=== PATIENT | male | born 1995 | race Caucasian/White ===

== ENCOUNTER 2025-02-11 05:48 | Emergency (ER) | payer OTHER, SELFPAY ==
--- NOTE | ~2025-02-11 | XR_ITS ---
CLINICAL HISTORY: constipation 1 view abdomen Comparison: None provided Findings: No pneumoperitoneum or pneumatosis. Formed fecal material within the ascending colon. No abnormal calcifications. No acute fractures. IMPRESSION: The bowel gas pattern is within normal limits. Small volume formed fecal material predominantly within the right colon. This document has been electronically signed by: Audrey Amato MD on 02/11/2025 08:24:14
[2025-02-11 05:55] VITALS: BP 149/72; PULSE 83; RESP 20; TEMP 37.2; O2SAT 97; BMI 48.1
--- NOTE | 2025-02-11 07:36 | ED_ITS ---
HPI - General Adult General Chief complaint: General Medical Stated complaint: constipation Time Seen by Provider: 02/11/25 07:36 Source: patient Mode of arrival: ambulatory Limitations: no limitations History of Present Illness ED Provider: [facility] narrative: Patient states he is presenting with constipation, last BM 4 days ago, passing gas, prior to that has been taking laxatives, he states he usually was moves his me on regular basis, no hematemesis no hematochezia, no nausea or vomiting fevers or chills no abdominal pain. Related Data Previous Rx's ?Medication ?Instructions ?Recorded peg 3350-electrolytes 236 240 ml PO Q10M #4,000 mL gram-22.74 gram-6.74 gram-5.86 gram solution (Golytely) Allergies Allergy/AdvReac Type Severity Reaction Status Date / Time No Known Allergies Allergy Verified 02/11/25 05:58 Review of Systems Constitutional: Constitutional: Reports as per [facility] Social History Social History Advance Directives: No Physical Exam ED Vital Signs: Vital Signs - 24 hr 02/11/25 05:55 Temperature 99.0 F Pulse Rate 83 Respiratory Rate 20 Blood Pressure 149/72 H Pulse Oximetry 97 Oxygen Delivery Method Room Air BMI result Body Mass Index 48.1 Const Other: * Gen: ?Overall well-appearing patient * Resp: ?No wheezing rales rhonchi no stridor moving air well * Abd: ?Bowel sounds are present, no tenderness no rebound no rigidity * MSK: FROM, strength 5/5 all extremities * Skin: Facial rosacea * Neuro: ?Alert and oriented x3, moving upper and lower extremities symmetrically, no obvious facial asymmetry noted Medical Decision Making Medical Decision Making [facility] Narrative: We will obtain KUB just to make sure he is actually constipated, there is no evidence for obstruction, x-ray can evaluate for obstructive patterns however as well, free air as well unlikely anticipating discharge Differential Diagnosis Differential Diagnoses: The differential diagnosis associated with the presentation includes Diverticulitis, appendicitis, SBO, volvulus, constipation Independent Interpretation I performed an independent interpretation of an: Plain X-Ray Interpretation: No free air, no obstructive patterns, stool mostly in the right colon Discharge Plan Discharge Clinical Impression: Constipation by delayed colonic transit Patient Disposition: Home, Self-Care Instructions: Constipation (ED) Additional Instructions: Use GoLYTELY, drink 8 oz every 20 minutes until you have a BMD can stop, thereafter stay hydrated, make sure diet has plenty of fiber, minimize cheese, bread, overall junk food, stay well hydrated and consider adding Metamucil to a diet which box up your stools I providing adequate fiber, and so you do not have to take laxatives, follow up with the PCP and other issues concerns come back to the ER Prescriptions: New peg 3350-electrolytes [Golytely] 236-22.74-6.74 -5.86 gram recon soln 240 ml PO Q10M Qty: 4000 0RF Rx Instructions: drink 8 oz q 20 min until BM, then stop Print Language: [place]an
[2025-02-11 08:41] VITALS: BP 149/72; PULSE 83; RESP 20; TEMP 37.2; O2SAT 97
== END 2025-02-11 08:41 | disposition home or self-care (01) ==
PROVIDERS: Emergency Provider Emergency Medicine; PCP Internal Medicine
DX: K59.00 Constipation, unspecified (principal); R10.2 Pelvic and perineal pain
CPT/HCPCS: 74018; 99283; 99284

== ENCOUNTER → 2025-02-11 07:44 | Outpatient (BNV) | payer OTHER, SELFPAY | PROVIDERS: Emergency Provider Emergency Medicine; PCP Internal Medicine; Visit Provider Radiology Diagnostic Radiology | DX: K59.00 Constipation, unspecified (principal) | CPT/HCPCS: 74018 ==